=== PATIENT | female | born 1980 | race Hispanic/Latino ===

== ENCOUNTER 2025-09-01 09:34 | Emergency (ER) | payer BC, MEDICAID ==
[~2025-09-01] VITALS: Ht 157.5 cm; Wt 134.3 kg
[~2025-09-01 09:34] MED LIST: DOCU-116 PO; IBUP-2077 PO; TYL3 PO
--- NOTE | 2025-09-01 09:40 | ERN ---
General Chief Complaint: Knee Injury/Swelling Stated Complaint: LT KNEE PAIN Time Seen by MD: 09:38 History of Present Illness Initial Comments 44-year-old female no past medical history remarkable presents to emergency room with a left knee pain. Patient states she was dancing last night when she had a twisting motion. States that she was in pain at that time however continue to dancing. She woke up this morning with the increasing pain and a ball to the back of her knee. She had asked decided to come to the emergency room for evaluation. She only took Motrin for pain., shortness of breath. No nausea vomiting diarrhea pain no chest pain Allergies: Coded Allergies: No Known Drug Allergies (Unverified Allergy, Unknown, 06/06/15) Home Meds Active Scripts Acetaminophen with Codeine (Tylenol with Codeine #3) 1 Tab Tab, 1 TAB PO Q4H, #40 TAB Prov:JAMES MA MD 07/05/15 Docusate Sodium (Colace) 100 Mg Capsule, 100 MG PO BID, #60 CAP Prov:JAMES MA MD 07/05/15 Ibuprofen (Ibuprofen 800 mg Tab) 800 Mg Tab, 800 MG PO Q8H PRN for PAIN, #60 TAB Prov:JAMES MA MD 07/05/15 ROS Dictation Positive for knee pain. Negative for everything else Review of Systems: was completed, & the rest were negative. Physical Exam Physical Exam Dictation GENERAL APPEARANCE NAD, activity normal for age, morbidly obese EYES lids/conjunctiva normal. EARS/NOSE/THROAT Mucous membranes moist, nares normal, lips/teeth normal uvula midline without oral pharyngeal erythema, exudate or swelling TMs normal bilaterally. No lymphangitis/lymphedema. HEAD/NECK normocephalic atraumatic, no facial trauma, neck is supple. RESPIRATORY respiratory effort normal, speaks in full sentences, no tripod position, no accessory muscle use. Lungs clear to auscultation without rhonchi, wheezes, rales CARDIAC Regular rate and rhythm, no edema. ABDOMINAL Soft, ND/NT. No evidence of fluid wave. No pulsatile masses on exam, rebound tenderness, Beasley sign or pain over Mcburney's point. MUSCLES/EXTREMITIES mild antalgic gait with a left limp. Decreased range of motion of the left knee secondary to pain. Able to tolerate standing without issue. SKIN Warm, pink and dry. No rashes, dermatoses, petechiae or lesions. NEUROLOGICAL Speech is clear and appropriate. Normal level of consciousness. Gait and coordination are normal. 5/5 strength in all extremities. PSYCH Normal mood and affect. Judgement/competence is appropriate Results EKG/XRAY/US/CT/MRI X-RAY Comment PATIENT: SASHA CARRENO MR#: [id number] : 1980 SEX: F AGE: 44 LOCATION: [facility] ORDER 8 STATUS: REG ER REPORT#: [id number] SERVICE 7 REASON: twisting pain after dancing ORDERING PHYSICIAN: GLENN PEREZ MD PROCEDURE: KNEE 3V LT - KNEE 3VWS LT EXAM: CR left Knee, 3 View. CLINICAL HISTORY: twisting pain after dancing COMPARISON: None provided. FINDINGS: BONES: No acute fracture or aggressive appearing osseous lesion. JOINTS: The joint spaces show no significant degenerative disease. There is no joint effusion appreciated. SOFT TISSUES: Mild infrapatellar bursitis. IMPRESSION: No acute osseous pathology evident. /[place] DICTATED BY: MILTON CHAVEZ Jr., MD DATE: 09/01/251209 ELECTRONICALLY SIGNED BY: MILTON CHAVEZ Jr., MD DATE: 09/01/251209 MDM 44-year-old female here for left knee pain. We will provide analgesia and get x-ray to rule out fracture. Disposition pending results of imaging. Likely discharge home ED Course Orders Procedure Category Date Status Time Knee 3vws Lt RAD 09/01/25 Resulted 09:38 Ketorolac PHA 09/01/25 Complete Tromethamine 15mg/Ml 10:00 Current Medications Medications (Trade) Dose Ordered Sig/Ananth Route PRN Reason Start Time Stop Time Status Last Admin Dose Admin Ketorolac Tromethamine (toRADol) 15 mg ONCE ONCE IV 09/01/25 10:00 09/01/25 10:01 DC 09/01/25 10:26 Vital Signs Date Time Temp Pulse Resp B/P (MAP) Pulse Ox O2 Delivery O2 Flow Rate FiO2 09/01/25 09:36 97.9 71 18 155/68 100 Room Air 0 DX & DISP Disposition: Discharge Departure Impression: Primary Impression: Left knee injury Condition: Stable Referrals: JAMES MA MD (PCP) GLENN PEREZ MD Sep 01, 2025 09:40
--- NOTE | 2025-09-01 11:10 | HMCIMG ---
EXAM: CR left Knee, 3 View. CLINICAL HISTORY: twisting pain after dancing COMPARISON: None provided. FINDINGS: BONES: No acute fracture or aggressive appearing osseous lesion. JOINTS: The joint spaces show no significant degenerative disease. There is no joint effusion appreciated. SOFT TISSUES: Mild infrapatellar bursitis. IMPRESSION: No acute osseous pathology evident. /[place]
[2025-09-01 11:37] VITALS: BP 138/62; PULSE 66; RESP 18; TEMP 97.9; O2SAT 100
== END 2025-09-01 11:37 | disposition home or self-care (01) ==
LOC: EDH 09:34
DX: S89.92XA Unspecified injury of left lower leg, initial encounter (principal); X50.1XXA Overexertion from prolonged static or awkward postures, initial encounter; Y93.41 Activity, dancing; Y92.89 Other specified places as the place of occurrence of the external cause; Y99.8 Other external cause status
CPT/HCPCS: 99284; 96374; 73562; J1885